=== PATIENT | female | born 1960 | race Hispanic/Latino ===

== ENCOUNTER 2017-03-02 09:09 | Emergency (ER) | payer BC ==
--- NOTE | 2017-03-02 09:20 | ED PDOC ---
Arrival/HPI - General Historian: Patient - General Time Seen by Provider: 03/02/17 09:17 - History of Present Illness Narrative History of Present Illness (Text): 03/02/17 09:19 56 y/o female, pmh including diverticulosis, psychiatric history of bipolar and taking lamictal for this condition, allergic to dilaudid and paxil, c/o abdominal cramp with diarrhea x 3 days s/p had fried fish sandwich the night before. Pt. has fried fish sandwich about 3 nights ago which later that evening started to feel discomfortable with abdominal bloating, woke up following day with the diarrhea. Pt. stated that she has watery diarrhea for the past 3 days with abdominal cramp, associated with nausea and couple episodes of vomiting this morning which causing her to come to the ER. Pt. has no recent traveling or use of any antibiotic for the past 6 weeks, no sick contact for the past 6 weeks either, no fever, no rash, no other medical or psychological complaints. (Chintan Dudley) Past Medical History - Provider Review Nursing Documentation Reviewed: Yes - Infectious Disease Hx of Infectious Diseases: None - Tetanus Immunization Tetanus Immunization: Unknown - Past Medical History Past Medical History: No Previous - Pulmonary Hx Respiratory Disorders: No - Neurological Hx Neurological Disorder: No - HEENT Hx HEENT Disorder: No - Integumentary Hx Dermatological Disorder: No - Musculoskeletal/Rheumatological Hx Musculoskeletal Disorders: No - Gastrointestinal Hx Gastrointestinal Disorders: Yes Hx Gastroesophageal Reflux: Yes - Genitourinary/Gynecological Hx Genitourinary Disorders: No - Psychiatric Hx Bipolar Disorder: Yes Hx Depression: No Hx Emotional Abuse: No Hx Physical Abuse: No Hx Substance Use: No - Past Surgical History Past Surgical History: Non-Contributing - Suicidal Assessment Feels Threatened In Home Enviroment: No Family/Social History - Physician Review Nursing Documentation Reviewed: Yes Family/Social History: Unknown Family HX Hx Alcohol Use: No Hx Substance Use: No Hx Substance Use Treatment: No Allergies/Home Meds Allergies/Adverse Reactions: Allergies hydromorphone [From Dilaudid] Allergy (Verified 03/02/17 09:29) RASH latex Allergy (Verified 03/02/17 09:29) WHEEZING paroxetine [From Paxil] Allergy (Verified 03/02/17 09:29) ANAPHYLAXIS Home Medications: Home Meds Medication Instructions Recorded Confirmed Dexlansoprazole [Dexilant] 60 mg PO DAILY 03/02/17 03/02/17 Hydroxyzine HCl [Hydroxyzine HCl] 2 tab PO HS 03/02/17 03/02/17 Lamotrigine [Lamictal] 150 mg PO BID 03/02/17 03/02/17 Lurasidone HCl [Latuda] 20 mg PO DAILY 03/02/17 03/02/17 Ondansetron HCl [Zofran] 4 mg PO Q6 PRN 03/02/17 03/02/17 Review of Systems - Review of Systems Constitutional: Fatigue. absent: Fevers Eyes: absent: Vision Changes Cardiovascular: absent: Chest Pain Gastrointestinal: Abdominal Pain, Diarrhea, Nausea, Vomiting Genitourinary Female: absent: Dysuria, Frequency Musculoskeletal: absent: Arthralgias, Myalgias Skin: absent: Rash, Pruritis, Skin Lesions Neurological: absent: Headache, Dizziness, Focal Weakness, Gait Changes, Speech Changes, Facial Droop, Disequilibrium, Seizure Physical Exam Vital Signs Reviewed: Yes Temperature: Afebrile Blood Pressure: Normal Pulse: Regular Respiratory Rate: Normal Appearance: Positive for: Well-Appearing, Non-Toxic, Uncomfortable Pain Distress: Mild Mental Status: Positive for: Alert and Oriented X 3 - Systems Exam Head: Present: Atraumatic, Normocephalic Pupils: Present: PERRL Extroacular Muscles: Present: EOMI Conjunctiva: Present: Normal Ears: Present: NORMAL TM, Normal Canal. No: Erythema Mouth: Present: Moist Mucous Membranes Nose (Internal): Present: Normal Inspection, No Active Bleeding. No: Rhinorrhea , Septal Hematoma, Epistaxis Neck: Present: Normal Range of Motion Respiratory/Chest: Present: Clear to Auscultation, Good Air Exchange. No: Respiratory Distress, Accessory Muscle Use, Wheezes, Retracting, Rhonchi Cardiovascular: Present: Regular Rate and Rhythm, Normal S1, S2. No: Murmurs Abdomen: Present: Tenderness (lt. sided abdominal and epigastric region), Distention (generalized), Normal Bowel Sounds (hypoac). No: Peritoneal Signs, McBurney's Point Tender Back: Present: Normal Inspection. No: CVA Tenderness Upper Extremity: Present: Normal Inspection. No: Cyanosis, Edema Lower Extremity: Present: Normal Inspection. No: Edema Neurological: Present: GCS=15, Speech Normal, Motor Func Grossly Intact, Gait Normal, Memory Normal Skin: Present: Warm, Dry, Normal Color. No: Rashes Psychiatric: Present: Alert, Oriented x 3, Normal Insight, Normal Concentration Medical Decision Making - Lab Interpretations I have reviewed the lab results: Yes Interpretation: Abnormal lab values (UA show +trace leuk) - RAD Interpretation Continuity Editor: Radiologist ED Course and Treatment: 03/02/17 09:18 -labs/ua -CT abdomen and pelvis -IVF/pepcid/zofran -Observe and reassess 03/02/17 11:18 -Labs are non-significant with negative lipase -UA show trace leuk, urine culture added -Pending CT abdomen and pelvis 03/02/17 11:43 -Pt. stated that she has no pain now but cramps when going to have diarrhea, refused narcotics, tylenol 650mg po ordered. -I discussed labs with the pmd Dr. Zamarripa which he is awared that the patient 's lab and in the ER as he received the message from the patient this morning prior to arrival to the ER. 03/02/17 11:59 -CT scan show: 9mm liver lesion and 1.9cm renal cyst which is unchanged, Mesenteric adenitis/panniculitis, afebrile, wbc within normal limit, likely viral induced but stool culture and c.diff sent. -I discussed all labs and radiology results with the patient, will follow up the stool and c.diff culture, urine culture sent as well. -I discussed the adverse effect of the fluoroquinolones medication including ciprofloxacin will potentially causes achilles tendon rupture but advised no gym or exercise while on this medication and stay hydrated, pt. understood the risk and willing to take this medication as it covers infectious diarrhea as well including UTI. -pt. feels well, vitally stable, advised outpatient PMD and GI follow up if indicated. 03/02/17 12:40 -Discharge home with ciprofloxacin, BRAT diet, gatorade or pedialyte as needed, stay hydrated, bed rest, follow up with your own pmd and GI within 2 days, return to the ER for any new or worsening signs or symptoms. (Chintan Dudley) I was available for consultation during PA evaluation. The chart was reviewed by me, and I agree with disposition. The documented history was done by the physician head filter tank tender helper. The documented physical exam was done by the physician head filter tank tender helper. The documented procedures were done by the physician head filter tank tender helper. ( Herman Jimenez) - Lab Interpretations Microbiology Results: Microbiology Results 03/02/17 12:22 Stool C. difficile Antigen & Toxin A,B (M - Final Lab Results: 03/02/17 09:50 03/02/17 10:48 Lab Results 03/02/17 10:48: Sodium 138, Potassium 4.0, Chloride 104, Carbon Dioxide 24, Anion Gap 14, BUN 11, Creatinine 1.1, Est GFR ( Amer) > 60, Est GFR (Non- Af Amer) 52, Random Glucose 94, Calcium 8.9, Total Bilirubin 0.5, AST 47 H, ALT 62 H, Alkaline Phosphatase 119, Total Protein 7.0, Albumin 4.1, Globulin 3.0, Albumin/Globulin Ratio 1.4, Lipase 23 03/02/17 10:33: Urine Color Yellow, Urine Appearance Sl cloudy, Urine pH 6.0, Ur Specific [place] 1.025, Urine Protein 100 H, Urine Glucose (UA) Negative, Urine Ketones Negative, Urine Blood Negative, Urine Nitrate Negative, Urine Bilirubin Small H, Urine Urobilinogen 1.0 H, Ur Leukocyte Esterase Trace H, Urine RBC 0 - 2, Urine WBC 2 - 5, Ur Epithelial Cells 4 - 5, Urine Bacteria Few , Urine HCG, Qual Negative 03/02/17 09:50: WBC 7.8, RBC 5.44, Hgb 15.4, Hct 45.8, MCV 84.2, MCH 28.3, MCHC 33.6, RDW 14.1, Plt Count 274, MPV 9.6, Gran % 77.5 H, Lymph % (Auto) 12.4 L, [place] % (Auto) 9.0 H, Eos % (Auto) 0.8 L, Baso % (Auto) 0.3, Gran # 6.07, Lymph # 1.0 L, [place] # 0.7 H, Eos # 0.1, Baso # 0.02 - RAD Interpretation Radiology Orders: 03/02/17 09:37 ABD & PELVIS IV CONTRAST ONLY [CT] Stat PROCEDURE: CT Abdomen and Pelvis with contrast HISTORY: LLQ abdominal pain, diarrhea COMPARISON: 09/18/2014 TECHNIQUE: Contrast dose: 150 mL Omnipaque 350 Radiation dose: Total exam DLP = 1622.67 mGy-cm. This CT exam was performed using one or more of the following dose reduction techniques: Automated exposure control, adjustment of the mA and/or kV according to patient size, and/or use of iterative reconstruction technique. FINDINGS: LOWER THORAX: Unremarkable. LIVER: Normal size, contour and attenuation. Stable 9 mm low-attenuation lesion, nonspecific, in superior right hepatic lobe. No biliary dilatation. GALLBLADDER AND BILE DUCTS: Status post cholecystectomy. PANCREAS: Unremarkable. No gross lesion or ductal dilatation. SPLEEN: Unremarkable. ADRENALS: Unremarkable. No mass. KIDNEYS AND URETERS: Right upper pole renal cortical cyst, 1.9 cm, unchanged. No other mass. No calculus or hydronephrosis. VASCULATURE: Unremarkable. No aortic aneurysm. BOWEL: Sigmoid diverticulosis without evidence of diverticulitis. No bowel obstruction. APPENDIX: Normal appendix. PERITONEUM: Unremarkable. No free fluid. No free air. LYMPH NODES: No significant retroperitoneal or pelvic lymphadenopathy. Extensive mesenteric lymphadenopathy both shotty subcentimeter nodes and some frankly mildly enlarged nodes. Hazy increased density of the small bowel mesentery consistent with mesenteric panniculitis. BLADDER: Poorly distended. Grossly normal. REPRODUCTIVE: Likely prior hysterectomy. BONES: No acute fracture. OTHER FINDINGS: None. IMPRESSION: Findings consistent with mesenteric adenitis/mesenteric panniculitis. Sigmoid diverticulosis without evidence of diverticulitis. Additional minor findings as above. (Chintan Dudley) - Medication Orders Current Medication Orders: Discontinued Medications Acetaminophen (Tylenol 325mg Tab) 650 mg PO STAT STA Stop: 03/02/17 11:44 Last Admin: 03/02/17 11:54 Dose: 650 mg Famotidine (Pepcid) 20 mg IVP STAT STA Stop: 03/02/17 09:38 Last Admin: 03/02/17 10:08 Dose: 20 mg Sodium Chloride (Sodium Chloride 0.9%) 1,000 mls @ 999 mls/hr IV .Q1H1M STA Stop: 03/02/17 10:37 Last Admin: 03/02/17 10:08 Dose: 999 mls/hr Ciprofloxacin (Cipro 400mg/200ml Dsw) 400 mg in 200 mls @ 133.3 mls/hr IVPB STAT STA PRN Reason: Protocol Stop: 03/02/17 13:50 Last Admin: 03/02/17 12:39 Dose: 133.3 mls/hr Iohexol (Omnipaque 350 150 Ml) Confirm Administered Dose 150 ml .ROUTE .STK-MED ONE Stop: 03/02/17 11:16 Ondansetron HCl (Zofran Inj) 4 mg IVP STAT STA Stop: 03/02/17 09:38 Last Admin: 03/02/17 10:08 Dose: 4 mg - PA / ORACLE EBS ARCHITECT / Resident Statement MD/DO has reviewed & agrees with the documentation as recorded. Disposition/Present on Arrival - Present on Arrival Any Indicators Present on Arrival: No History of DVT/PE: No History of Uncontrolled Diabetes: No Urinary Catheter: No History of Decub. Ulcer: No History Surgical Site Infection Following: None - Disposition Have Diagnosis and Disposition been Completed?: Yes Disposition Time: 12:42 Patient Plan: Discharge - Disposition Diagnosis: Diarrhea, UTI (urinary tract infection), Mesenteric adenitis, Renal cyst, Liver lesion Disposition: HOME/ ROUTINE Condition: IMPROVED Additional Instructions: Discharge home with ciprofloxacin (no gym or exercise for 1 week while on this medication), BRAT diet, gatorade or pedialyte as needed, stay hydrated, bed rest , follow up with your own pmd and GI within 2 days, return to the ER for any new or worsening signs or symptoms. Prescriptions: Ciprofloxacin/Ciprofloxa HCl [Ciprofloxacin] 500 mg PO BID #14 tab Ondansetron [Zofran] 4 mg PO Q8H PRN #10 tab PRN Reason: Nausea/Vomiting Referrals: Kervin Zamarripa MD [Primary Care Provider] - Follow up with primary Mendoza Damian MD [Staff Provider] - Follow up with primary Forms: WORK NOTE, [facility] (Arabic)
[2017-03-02 09:29] VITALS: BMI 39.1
[2017-03-02 09:31] VITALS: TEMP 98.1; O2SAT 97
[2017-03-02] MEDS ORDERED: Sodium Chloride 0.9% 1,000 ML IV STA (09:37)
[2017-03-02 10:21] LABS: ADD MANUAL DIFF? NO
[2017-03-02 10:39] LABS: URINE BILIRUBIN SMALL (NEGATIVE); URINE BLOOD NEGATIVE (NEGATIVE); URINE GLUCOSE (UA) NEGATIVE (NEGATIVE); URINE KETONE NEGATIVE (NEGATIVE); URINE LEUKOCYTE ESTERASE TRACE Leu/uL (NEGATIVE); URINE PROTEIN 100 mg/dL (<30 mg/dL)
[2017-03-02 10:39] LABS: BASO # 0.02 K/mm3 (0.0-2.0); BASO % 0.3 % (0.0-3.0); EOS # 0.1 (0.0-0.7); EOS % 0.8 % (1.5-5.0); GRAN # 6.07 (1.4-6.5); GRAN % 77.5 % (50.0-68.0); HEMATOCRIT 45.8 % (36.0-48.0); LYMPH % 12.4 % (22.0-35.0); MEAN CELL VOLUME 84.2 fL (80.0-105.0); MEAN CORPUSCULAR HEMOGLOBIN 28.3 pg (25.0-35.0); MEAN CORPUSCULAR HGB CONC 33.6 g/dl (31.0-37.0); MEAN PLATELET VOLUME 9.6 fl (7.0-11.0); MONO # 0.7 (0.1-0.6); PLATELET COUNT 274 10^3/uL (120.0-450.0); RED CELL DISTRIBUTION WIDTH 14.1 % (11.5-14.5); WHITE BLOOD COUNT 7.8 10^3/ul (4.5-11.0)
[2017-03-02 10:44] LABS: URINE APPEARANCE SL CLOUDY (CLEAR); URINE COLOR YELLOW (YELLOW)
[2017-03-02 10:47] VITALS: RESP 18
[2017-03-02 10:53] LABS: URINE BACTERIA FEW (NEG); URINE RBC 0 - 2 /hpf (0-2)
[2017-03-02 11:01] LABS: ALB/GLOB RATIO 1.4 (1.1-1.8); ALKALINE PHOSPHATASE 119 U/L (38-133); ALT/SGPT 62 U/L (7-56); AST/SGOT 47 U/L (15-39); BILIRUBIN,TOTAL 0.5 mg/dL (0.2-1.3); BLOOD UREA NITROGEN 11 mg/dL (7-21); CALCIUM 8.9 mg/dL (8.4-10.5); CARBON DIOXIDE 24 mmol/L (21-33); CHLORIDE 104 mmol/L (98-107); GFR AFRICAN-AMERICAN > 60; GLUCOSE,RANDOM 94 mg/dL (70-110); LIPASE 23 U/L (23-300); SODIUM 138 mmol/L (132-148)
--- NOTE | 2017-03-02 11:45 | CT ---
PROCEDURE: CT Abdomen and Pelvis with contrast HISTORY: LLQ abdominal pain, diarrhea COMPARISON: 09/18/2014 TECHNIQUE: Contrast dose: 150 mL Omnipaque 350 Radiation dose: Total exam DLP = 1622.67 mGy-cm. This CT exam was performed using one or more of the following dose reduction techniques: Automated exposure control, adjustment of the mA and/or kV according to patient size, and/or use of iterative reconstruction technique. FINDINGS: LOWER THORAX: Unremarkable. LIVER: Normal size, contour and attenuation. Stable 9 mm low-attenuation lesion, nonspecific, in superior right hepatic lobe. No biliary dilatation. GALLBLADDER AND BILE DUCTS: Status post cholecystectomy. PANCREAS: Unremarkable. No gross lesion or ductal dilatation. SPLEEN: Unremarkable. ADRENALS: Unremarkable. No mass. KIDNEYS AND URETERS: Right upper pole renal cortical cyst, 1.9 cm, unchanged. No other mass. No calculus or hydronephrosis. VASCULATURE: Unremarkable. No aortic aneurysm. BOWEL: Sigmoid diverticulosis without evidence of diverticulitis. No bowel obstruction. APPENDIX: Normal appendix. PERITONEUM: Unremarkable. No free fluid. No free air. LYMPH NODES: No significant retroperitoneal or pelvic lymphadenopathy. Extensive mesenteric lymphadenopathy both shotty subcentimeter nodes and some frankly mildly enlarged nodes. Hazy increased density of the small bowel mesentery consistent with mesenteric panniculitis. BLADDER: Poorly distended. Grossly normal. REPRODUCTIVE: Likely prior hysterectomy. BONES: No acute fracture. OTHER FINDINGS: None. IMPRESSION: Findings consistent with mesenteric adenitis/mesenteric panniculitis. Sigmoid diverticulosis without evidence of diverticulitis. Additional minor findings as above.
[2017-03-02] MEDS ORDERED: Ciprofloxacin 400mg/200ml D5W 400 MG/200 ML BAG IVPB STA (12:20)
[2017-03-02 12:40] VITALS: BP 134/75; PULSE 64
== END 2017-03-02 14:30 | disposition home or self-care (01) ==
LOC: ED 09:09
DX: R19.7 Diarrhea, unspecified (principal); N39.0 Urinary tract infection, site not specified; I88.0 Nonspecific mesenteric lymphadenitis; N28.1 Cyst of kidney, acquired; K76.9 Liver disease, unspecified
CPT/HCPCS: 74177; 80053; 81001; 83690; 84703; 85025; 87086; 87324; 96361; 96365; 96366; 96375; 99285; J0744; J2405; J7040; Q9967